=== PATIENT | female | born 1940 ===

== ENCOUNTER 2016-12-23 15:12 | Inpatient (IN) | payer MEDICARE, BC ==
[2016-12-23] MEDS ORDERED: Sodium Chloride 0.9% 1,000 ML IV STA (15:37)
[2016-12-23] MEDS ORDERED: Tobramycin 0.3% OPHT SOLN OS STA (15:38)
--- NOTE | 2016-12-23 15:41 | ED PDOC ---
Syncope/Near Syncope/Dizziness Time Seen by Provider: 12/23/16 15:29 Chief Complaint (Nursing): Dizziness/Lightheaded History Per: Patient Onset/Duration Of Symptoms: Days (3) Current Symptoms Are (Timing): Still Present Activity At Onset Of Symptoms: Exertional Activity Associated Symptoms Preceding Syncopal Episode: No Predromal Symptoms (Sudden Onset) Seizure Or Post-ictal Symptoms: None Possible Causative Factor(s): Other (dehydration) Fall Associated With With Symptoms: No Severity: Mild Pain Scale Rating Of: 1 Additional Complaint(s): Weakness, dizziness, lightheadednessx 3 days assoc with cramping lower ext. Denies vomiting or diarrhea. No fever. Referred by PMD for eval of sxs. denies chest pain or palpitations. no LOC Past Medical History Vital Signs: Last Vital Signs Temp 98.1 F 12/23/16 15:19 Pulse 84 12/23/16 15:19 Resp 16 12/23/16 15:19 BP 128/73 12/23/16 15:19 Pulse Ox 198 H 12/23/16 15:19 - Medical History PMH: Chronic Kidney Disease (renal problems, no dialysis) - Family History Family History: States: Unknown Family Hx - Immunization History Hx Tetanus Toxoid Vaccination: No Hx Influenza Vaccination: No Hx Pneumococcal Vaccination: No - Home Medications Home Medications: Ambulatory Orders Medication Instructions Recorded Allopurinol 300 mg PO DAILY 07/11/13 Aspirin 1 tab PO DAILY 07/11/13 Benicar Hct 12.5 mg-20 mg 1 tab PO DAILY 07/11/13 Cilostazol 100 mg PO BID 07/11/13 Diclofenac 75 mg PO DAILY 07/11/13 Flexeril 10 mg PO HS 07/11/13 Super B Complex 1 tab PO DAILY 07/11/13 Vitamin B12 2,500 mcg SL DAILY 07/11/13 traMADol 37.25 - 325 mg PO Q6 PRN 07/11/13 - Allergies Allergies/Adverse Reactions: Allergies Allergy/AdvReac Type Severity Reaction Status Date / Time Penicillins Allergy RASH Verified 12/23/16 15:19 Review of Systems ROS Statement: Except As Marked, All Systems Reviewed And Found Negative Musculoskeletal: Positive for: Leg Pain Neurological: Positive for: Dizziness Physical Exam - Reviewed Nursing Documentation Reviewed: Yes Vital Signs Reviewed: Yes - Physical Exam Appears: Positive for: Non-toxic, No Acute Distress Head Exam: Positive for: ATRAUMATIC, NORMAL INSPECTION, NORMOCEPHALIC Skin: Positive for: Normal Color, Warm, DRY Eye Exam: Positive for: EOMI, PERRL, Conjunctival injection (Left eye with discharge) ENT: Positive for: Other (Mucous membranes dry) Neck: Positive for: Normal, Painless ROM Cardiovascular/Chest: Positive for: Regular Rate, Rhythm Respiratory: Positive for: CNT, Normal Breath Sounds Gastrointestinal/Abdominal: Positive for: Normal Exam, Bowel Sounds, Soft Back: Positive for: Normal Inspection Extremity: Positive for: Normal ROM. Negative for: Calf Tenderness, Swelling Neurologic/Psych: Positive for: Alert, Oriented. Negative for: Motor/Sensory Deficits - Laboratory Results Result Diagrams: 12/23/16 16:00 12/23/16 16:00 - ECG O2 Sat by Pulse Oximetry: 198 Disposition - Clinical Impression Clinical Impression: Dehydration - Patient ED Disposition Is Patient to be Admitted: Yes - Disposition Disposition Time: 17:34 Condition: FAIR - Pt Status Changed To: Hospital Disposition Of: Observation - POA Present On Arrival: None
[2016-12-23 16:32] LABS: BASO # 0.2 K/uL (0.0-0.2); EOS # 0.6 K/uL (0.0-0.7); EOS % 3.3 % (0.0-4.0); HEMOGLOBIN 12.3 g/dL (12.0-16.0); LYMPH # 2.6 K/uL (1.0-4.3); LYMPH % 15.3 % (20.0-40.0); MEAN CELL VOLUME 94.2 fl (81.0-99.0); MEAN CORPUSCULAR HEMOGLOBIN 30.3 pg (27.0-31.0); MEAN CORPUSCULAR HGB CONC 32.2 g/dL (33.0-37.0); MEAN PLATELET VOLUME 8.7 fl (7.2-11.7); MONO # 0.9 K/uL (0.0-0.8); MONO % 5.3 % (0.0-10.0); NEUT # 12.6 K/uL (1.8-7.0); NEUT % 75.1 % (50.0-75.0); RBC 4.05 Mil/uL (3.80-5.20); RED CELL DISTRIBUTION WIDTH 18.4 % (11.5-14.5); WHITE BLOOD COUNT 16.8 K/uL (4.8-10.8)
[2016-12-23 16:45] LABS: ALB/GLOB RATIO 1.1 (1.0-2.1); ALBUMIN 4.3 g/dL (3.5-5.0); CALCIUM 9.2 mg/dL (8.4-10.2)
[2016-12-23 17:45] LABS: VENOUS BLOOD GAS BASE EXCESS -11.4 mmol/L (0.0-2.0); VENOUS BLOOD GAS PCO2 101 mmHg (40-60); VENOUS BLOOD GAS PO2 32 mm/Hg (30-55); VENOUS BLOOD PH 6.96 (7.32-7.43)
[2016-12-24 06:16] LABS: HEMOGLOBIN 11.8 g/dL (12.0-16.0); MEAN CELL VOLUME 94.1 fl (81.0-99.0); MEAN CORPUSCULAR HGB CONC 31.9 g/dL (33.0-37.0); RBC 3.95 Mil/uL (3.80-5.20); RED CELL DISTRIBUTION WIDTH 18.6 % (11.5-14.5); WHITE BLOOD COUNT 17.1 K/uL (4.8-10.8)
[2016-12-24 06:26] LABS: ALB/GLOB RATIO 1.1 (1.0-2.1); ALBUMIN 3.8 g/dL (3.5-5.0)
--- NOTE | 2016-12-24 07:48 | CP.PCM.HP ---
Addendum entered and electronically signed by Manas Piper MD 12/24/16 11 :10: as per CC, pt denied fever/chills, Headaches, changes in vision, CP/SOB/WEBER/ Palpitations, N/V/D/C, urinary symptoms, numbness/tingling. Original Note: <Manas Piper - Last Filed: 12/24/16 11:03> History of Present Illness - History of Present Illness History of Present Illness: 76 y/o female with a PMHx of CKD not requiring HD was sent to [facility] ED by her PMD Dr. Ellington for evaluation after a 3 day hx of worsening Weakness, dizziness , lightheadedness associated with cramping lower extremity pain. Reports being in usual state of health before onset of symptoms. Unsure of what may have caused her symptoms to begin. PMD: Dr. Ellington Present on Admission - Present on Admission Any Indicators Present on Admission: No History of DVT/PE: No History of Uncontrolled Diabetes: No Review of Systems - Review of Systems All systems: reviewed and no additional remarkable complaints except - Constitutional Constitutional: As Per HPI - EENT Nose/Mouth/Throat: Post Nasal Drip, Sore Throat Past Patient History - Tetanus Immunizations Tetanus Immunization: Unknown - Past Medical History & Family History Past Medical History?: Yes Past Family History: Reviewed and not pertinent - Past Social History Smoking Status: Never Smoked Alcohol: None Drugs: Denies Home Situation {Lives}: With Family Domestic Violence: Negative - RENAL Hx Chronic Kidney Disease: Yes (renal problems, no dialysis) - MUSCULOSKELETAL/RHEUMATOLOGICAL Hx Falls: No - PSYCHIATRIC Hx Substance Use: No - SURGICAL HISTORY Hx Section: Yes Hx Thyroidectomy: Yes - ANESTHESIA Hx Anesthesia: Yes Hx Anesthesia Reactions: No Meds Allergies/Adverse Reactions: Allergies Allergy/AdvReac Type Severity Reaction Status Date / Time Penicillins Allergy RASH Verified 12/23/16 15:19 Physical Exam - Constitutional Appears: Non-toxic, No Acute Distress - Head Exam Head Exam: ATRAUMATIC, NORMOCEPHALIC - Eye Exam Eye Exam: EOMI Pupil Exam: PERRL - ENT Exam ENT Exam: Mucous Membranes Moist - Expanded ENT Exam Expanded Throat exam: Tonsillar Erythema, Tonsillar Exudate - Neck Exam Neck exam: Positive for: Full Rom, Lymphadenopathy (ant cervical adenopathy), Tenderness - Respiratory Exam Respiratory Exam: Clear to Auscultation Bilateral, NORMAL BREATHING PATTERN. absent: Accessory Muscle Use, Rales, Rhonchi, Wheezes - Cardiovascular Exam Cardiovascular Exam: REGULAR RHYTHM, RRR, +S1, +S2. absent: JVD, Rubs - GI/Abdominal Exam GI & Abdominal Exam: Normal Bowel Sounds, Soft - Extremities Exam Extremities exam: Positive for: normal inspection - Back Exam Back exam: NORMAL INSPECTION - Neurological Exam Neurological exam: Alert, CN II-XII Intact, Oriented x3 Results - Vital Signs Recent Vital Signs: Last Vital Signs Temp 98.2 F 12/24/16 04:59 Pulse 90 12/24/16 04:59 Resp 21 12/24/16 04:59 BP 158/92 H 12/24/16 04:59 Pulse Ox 97 12/24/16 04:59 - Labs Result Diagrams: 12/24/16 05:40 12/24/16 05:40 Labs: Laboratory Results - last 24 hr 12/24/16 12/24/16 05:40 05:40 WBC 17.1 H RBC 3.95 Hgb 11.8 L Hct 37.2 MCV 94.1 MCH 30.0 MCHC 31.9 L RDW 18.6 H Plt Count 315 Sodium 141 Potassium 4.7 Chloride 107 Carbon Dioxide 25 Anion Gap 14 BUN 35 H Creatinine 2.1 H Est GFR ( Amer) 28 Est GFR (Non-Af Amer) 23 Random Glucose 87 Calcium 9.0 Total Bilirubin 0.4 AST 29 ALT 44 Alkaline Phosphatase 70 Total Protein 7.1 Albumin 3.8 Globulin 3.3 Albumin/Globulin Ratio 1.1 Assessment & Plan (1) Dehydration Assessment and Plan: Dehydration likely secondary to decreased PO intact will follow BMP and repeat ABG Status: Acute (2) Pharyngitis Assessment and Plan: Likely cause of leukocytosis CrCl: 25 started on: -IV Cipro 200mg Q12H (renal dosage) -IV Azithromycin 500mg QD monitor vitals f/u CBC Status: Acute Priority: Medium (3) CKD (chronic kidney disease) stage 4, GFR 15-29 ml/min Assessment and Plan: c/w current management Status: Chronic Priority: Low (4) DVT prophylaxis Assessment and Plan: Lovenox 30 mg SC QD Status: Acute Priority: Medium <BainBaltaDawson K - Last Filed: 12/25/16 14:52> Results - Vital Signs Recent Vital Signs: Last Vital Signs Temp 98.7 F 12/25/16 12:02 Pulse 98 H 12/25/16 12:02 Resp 18 12/25/16 12:02 BP 110/56 L 12/25/16 12:02 Pulse Ox 97 12/25/16 12:02 - Labs Result Diagrams: 12/25/16 06:05 12/25/16 06:05 Labs: Laboratory Results - last 24 hr 12/25/16 12/25/16 06:05 06:05 WBC 15.3 H RBC 4.07 Hgb 12.2 Hct 38.6 MCV 94.8 MCH 30.0 MCHC 31.6 L RDW 18.1 H Plt Count 312 Sodium 143 Potassium 4.6 Chloride 107 Carbon Dioxide 27 Anion Gap 13 BUN 41 H Creatinine 2.3 H Est GFR ( Amer) 25 Est GFR (Non-Af Amer) 21 Random Glucose 92 Calcium 9.2 Total Bilirubin 0.5 AST 30 ALT 38 Alkaline Phosphatase 74 Total Protein 7.4 Albumin 3.9 Globulin 3.5 Albumin/Globulin Ratio 1.1 Assessment & Plan - Assessment and Plan (Free Text) Assessment: Patient was personally seen and examined by me in rounds with residents. Available labs and diagnostic data reviewed. Case, Patient's condition and management plan discussed with residents in rounds. Agree with resident's documentation. Plan: As ordered. Dawson Bain MD
--- NOTE | 2016-12-24 10:11 | CARD ---
APPROVED REPORT EKG Measurement Heart [id number] <Conclusion> Normal sinus rhythm Normal ECG
[2016-12-24] MEDS: Ciprofloxacin 200mg/100ml D5W 100 ML IVPB SCH ×2 (11:06→21:54)
[2016-12-24] MEDS: Pantoprazole 40 mg EC Tab PO SCH (11:06)
[2016-12-24] MEDS: Multivitamin Vitamin B Complex (Nephro-Vite) Tab PO SCH (11:06)
[2016-12-24] MEDS: Azithromycin 500 MG in Sodium Chloride 0.9% 250 ML IVPB SCH (11:07)
[2016-12-24] MEDS: Enoxaparin 30 mg Syringe SC SCH (11:08)
[2016-12-24] MEDS ORDERED: Sodium Chloride 3% for Inhalation 4 ML VIAL.NEB IH PRN (13:46)
--- NOTE | 2016-12-24 14:50 | RAD ---
HISTORY: dizziness COMPARISON: No prior. TECHNIQUE: Chest PA and lateral FINDINGS: LUNGS: No active pulmonary disease. PLEURA: No significant pleural effusion identified. No pneumothorax apparent. CARDIOVASCULAR: Normal. OSSEOUS STRUCTURES: No significant abnormalities. VISUALIZED UPPER ABDOMEN: Normal. OTHER FINDINGS: None. IMPRESSION: No active disease.
[2016-12-25 06:38] LABS: HEMOGLOBIN 12.2 g/dL (12.0-16.0); MEAN CELL VOLUME 94.8 fl (81.0-99.0); MEAN CORPUSCULAR HGB CONC 31.6 g/dL (33.0-37.0); RBC 4.07 Mil/uL (3.80-5.20); RED CELL DISTRIBUTION WIDTH 18.1 % (11.5-14.5); WHITE BLOOD COUNT 15.3 K/uL (4.8-10.8)
[2016-12-25 06:54] LABS: ALB/GLOB RATIO 1.1 (1.0-2.1); ALBUMIN 3.9 g/dL (3.5-5.0); CALCIUM 9.2 mg/dL (8.4-10.2)
[2016-12-25 08:16] VITALS: RESP 18
[2016-12-25] MEDS: Ciprofloxacin 200mg/100ml D5W 100 ML IVPB SCH (08:51)
[2016-12-25] MEDS: Pantoprazole 40 mg EC Tab PO SCH (08:52)
[2016-12-25] MEDS: Enoxaparin 30 mg Syringe SC SCH (08:52)
[2016-12-25] MEDS: Multivitamin Vitamin B Complex (Nephro-Vite) Tab PO SCH (08:52)
[2016-12-25] MEDS: Azithromycin 500 MG in Sodium Chloride 0.9% 250 ML IVPB SCH (08:52)
[2016-12-25 12:02] VITALS: BP 110/56; PULSE 98; TEMP 98.7; O2SAT 97
== END 2016-12-25 14:00 | disposition home or self-care (01) | DRG 641 ==
LOC: H.ER 15:12 → H.TEL 17:41 → H.ERHOLD 18:05 → H.TEL 12-24 00:21 → OBSVTOIN 12-24 13:46
PROVIDERS: ADMIT Internal Medicine; ATTEND Internal Medicine
DX: E86.0 Dehydration (principal); N18.4 Chronic kidney disease, stage 4 (severe); J02.9 Acute pharyngitis, unspecified; Z88.0 Allergy status to penicillin